=== PATIENT | male | born 1955 ===

== ENCOUNTER 2020-07-06 15:38 | Observation (INO) | payer OTHER ==
[~2020-07-06] VITALS: Ht 182.9 cm; Wt 83.8 kg
--- NOTE | 2020-07-06 17:05 | NUR ---
DIRECT ADMIT FROM URGENT CARE PER PT, A&OX3, AMBULATORY, DENIES ANY PAIN OR NAUSEA, PT STATES HE HAD SOME PAIN ON RUQ AREA AND WENT TO THE URGENT CARE TODAY, STATES HE RECEIVED PAIN MEDICATION AT THE URGENT CARE AND HASN'T HAD ANY PAIN SINCE, DENIES ANY OTHER SYMPTOMS, DR. GUARDADO NOTIFIED OF CONSULT, STATES WILL SEE PT IN AM, NPO AFTER MN, OK FOR CLEAR LIQUIDS UNTIL MN, COVID TEST SENT, PT NOTIFIED OF PLAN, VERBALIZED UNDERSTANDING.
[2020-07-06 17:40] LABS: Influenza A, PCR NEGATIVE (NEGATIVE); Influenza B, PCR NEGATIVE (NEGATIVE); Resp Syncytial Virus, PCR NEGATIVE (NEGATIVE); SARS-Cov-2 (COVID-19) PCR, MMC NEGATIVE (NEGATIVE)
--- NOTE | 2020-07-06 18:22 | NUR ---
TOLERATED CLEAR LIQUIDS WELL, STILL DENIES ANY NEED FOR PAIN MEDS AT THIS TIME, DENIES ANY NAUSEA, OOB TO THE BATHROOM TO VOID, NO ACUTE CHANGES THIS SHIFT.
[2020-07-07 04:40] LABS: BASOPHILS ABSOLUTE AUTO 0.06 K/mm3 (0.00-0.23); BASOPHILS PERCENT AUTO 1 % (0-2); EOSINOPHILS ABSOLUTE AUTO 0.22 K/mm3 (0.00-0.68); EOSINOPHILS PERCENT AUTO 2 % (0-6); Hematocrit 47.6 % (37.0-53.0); Hemoglobin 15.8 g/dL (13.5-17.5); IMMATURE GRAN ABSOLUTE AUTO 0.04 K/mm3 (0.00-0.10); IMMATURE GRAN PERCENT AUTO 0 % (0-1); LYMPHOCYTES ABSOLUTE AUTO 2.43 K/mm3 (0.84-5.20); LYMPHOCYTES PERCENT AUTO 27 % (21-46); MONOCYTES ABSOLUTE AUTO 0.87 K/mm3 (0.16-1.47); MONOCYTES PERCENT AUTO 10 % (4-13); Mean Corpuscular HGB Conc 33.2 g/dL (31.5-36.5); Mean Corpuscular Volume 91 fL (80-100); Mean Platelet Volume 9.3 fL (9.1-12.4); NEUTROPHILS ABSOLUTE AUTO 5.38 K/mm3 (1.96-9.15); NEUTROPHILS PERCENT AUTO 60 % (41-73); Platelet Count 206 K/mm3 (150-400); RDW Coefficient Variation 11.9 % (11.7-14.2); Red Blood Cell Count 5.26 M/mm3 (4.30-5.90)
[2020-07-07 04:59] LABS: Alanine Aminotransfer (ALT/SGP 19 U/L (12-78); Albumin, Blood 3.2 g/dL (3.4-5.0); Alk Phos 59 U/L (50-136); Anion Gap 5 mmol/L (6-16); Aspartate Aminotrans (AST/SGOT 16 U/L (12-37); Bilirubin, Total 2.2 mg/dL (0.1-1.0); Blood Urea Nitrogen 9 mg/dL (8-24); Bun/Creatinine Ratio 9.8 (12.0-20.0); CO2, Blood 27 mmol/L (21-32); Calcium, Blood 8.3 mg/dL (8.5-10.1); Chloride, Blood 111 mmol/L (98-108); Creatinine, Blood 0.92 mg/dL (0.60-1.20); Globulin, Blood 3.1 g/dL (2.2-4.0); Glomerular Filtration Rate >60 (60-); Glucose, Blood 104 mg/dL (70-99); Potassium, Blood 3.8 mmol/L (3.5-5.5); Sodium, Blood 143 mmol/L (136-145); Total Protein, Blood 6.3 g/dL (6.4-8.2)
--- NOTE | 2020-07-07 05:42 | NUR ---
PT VSS T/O NIGHT. PT REP PAIN GAMALIEL, DECLINED NEED FOR PAIN MEDS, NO C/O N/V. PT IS VOIDING URINE W/O DIFFICULTY; URINE CLEAR YELLOW. PT NPO POST MIDNIGHT FOR PLAN FOR SURGERY TODAY.
--- NOTE | 2020-07-07 08:04 | NUR ---
DENIES ANY PAIN OR NAUSEA THIS AM, NPO FOR SURGERY TODAY, PT GOING TO TAKE A SHOWER THIS AM.
--- NOTE | 2020-07-07 11:10 | NUR ---
PT TAKEN TO OR.
--- NOTE | 2020-07-07 13:23 | NUR ---
ADMIT: 07/06/20 DISCHARGE: DX: cholecystitis CC: [email or web address] [facility] CALL: RESIDENCE: home CAREGIVER:self DX: chronic sinusitis DME: none CCM: none HOME HEALTH: none SUMMARY: 07/07/20- per chart review with Dr. Strange, pt is having/had surgery this morning. She states that if the pt is doing well s/p surgery, he could potentially be d/c today. Pt does have an upcoming appt with Dr. Garcia on 07/09/20 at 800. -kjw 1: Cholelithiasis with acute cholecystitis with biliary obstruction A/P: IVF, IVabx, NPO and to the OR for a laparoscopic, possible open, cholecystectomy with cholangiogram. PARQ and consent complete. Gallbladder handbook reviewed in detail.
--- NOTE | 2020-07-07 17:05 | NUR ---
VSS, REPORTS HAVING SOME INCISIONAL PAIN BUT REFUSES ANY PAIN MEDS AT THIS TIME, DSG C/D/I, JM DRAIN W/ SANGUINOUS DRAINAGE, OOB TO THE BATHROOM TO VOID, TOLERATING CLEAR LIQUIDS WELL, NO ACUTE CHANGES THIS SHIFT.
[2020-07-08 04:35] LABS: BASOPHILS ABSOLUTE AUTO 0.03 K/mm3 (0.00-0.23); BASOPHILS PERCENT AUTO 0 % (0-2); EOSINOPHILS PERCENT AUTO 0 % (0-6); Hematocrit 44.2 % (37.0-53.0); Hemoglobin 15.1 g/dL (13.5-17.5); IMMATURE GRAN ABSOLUTE AUTO 0.06 K/mm3 (0.00-0.10); IMMATURE GRAN PERCENT AUTO 0 % (0-1); LYMPHOCYTES ABSOLUTE AUTO 1.79 K/mm3 (0.84-5.20); LYMPHOCYTES PERCENT AUTO 12 % (21-46); MONOCYTES ABSOLUTE AUTO 1.14 K/mm3 (0.16-1.47); MONOCYTES PERCENT AUTO 8 % (4-13); Mean Corpuscular HGB 31.1 pg (26.0-34.0); Mean Corpuscular HGB Conc 34.2 g/dL (31.5-36.5); Mean Corpuscular Volume 91 fL (80-100); Mean Platelet Volume 9.4 fL (9.1-12.4); NEUTROPHILS ABSOLUTE AUTO 11.42 K/mm3 (1.96-9.15); NEUTROPHILS PERCENT AUTO 79 % (41-73); Platelet Count 207 K/mm3 (150-400); RDW Coefficient Variation 11.9 % (11.7-14.2); RDW Standard Deviation 39.8 fL (35.1-46.3); Red Blood Cell Count 4.85 M/mm3 (4.30-5.90); White Blood Cell Count 14.44 K/mm3 (4.00-11.30)
[2020-07-08 04:55] LABS: Alanine Aminotransfer (ALT/SGP 28 U/L (12-78); Albumin, Blood 3.1 g/dL (3.4-5.0); Alk Phos 53 U/L (50-136); Anion Gap 8 mmol/L (6-16); Aspartate Aminotrans (AST/SGOT 27 U/L (12-37); Blood Urea Nitrogen 12 mg/dL (8-24); Bun/Creatinine Ratio 13.1 (12.0-20.0); CO2, Blood 25 mmol/L (21-32); Calcium, Blood 8.2 mg/dL (8.5-10.1); Chloride, Blood 109 mmol/L (98-108); Creatinine, Blood 0.92 mg/dL (0.60-1.20); Globulin, Blood 3.2 g/dL (2.2-4.0); Glomerular Filtration Rate >60 (60-); Glucose, Blood 118 mg/dL (70-99); Potassium, Blood 3.9 mmol/L (3.5-5.5); Sodium, Blood 142 mmol/L (136-145); Total Protein, Blood 6.3 g/dL (6.4-8.2)
--- NOTE | 2020-07-08 06:34 | NUR ---
POD 1 S/P LAP ONEL. PT VSS T/O NIGHT. DRESSINGS CDI, JM PUT OUT 70ML TOTAL OF SS FLUID. PT REP PAIN MINIMAL, TORADOL GIVEN X1 W/REP RELIEF. PT DENIED N/V, REP +SMALL AMT FLATUS. PT GAMALIEL CL PO, HAS BEEN NPO X FEW SIPS OF WATER POST MIDNIGHT FOR POSS TRANSFER FOR ERCP TODAY.
--- NOTE | 2020-07-08 12:56 | NUR ---
Advance Directive(AD) education attempted/ Spiritual Care visit conducted. After receiving an admit referral for AD education, I visit patient. Patient expresses no interest in filling out an Advance Directive and does not want to discuss it. 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 He says that he has great support from his episcopal and his daughters. I provide therapeutic listening and prayer. Patient voices appreciation for the prayer.
--- NOTE | 2020-07-08 16:15 | NUR ---
REPORT CALLED TO [facility] PT'S PAIN WELL CONTROLLED. PASSING GAS. EATING & DRINKING FULL LQS W/O ISSUE.
--- NOTE | 2020-07-08 16:51 | NUR ---
SUMMARY: 07/08/20- PT WAS TRANSFERRED TO [facility] FOR ERCP. -[place]
== END 2020-07-08 16:30 | disposition short-term general hospital (02) ==
LOC: SURS 15:38
PROVIDERS: Surgery; ADMIT Family Medicine
PROC: BF03YZZ Plain Radiography of Gallbladder and Bile Ducts using Other Contrast (ICD-10-PCS; principal; 2020-07-07 10:00)
PROC: 0FT44ZZ Resection of Gallbladder, Percutaneous Endoscopic Approach (ICD-10-PCS; principal; 2020-07-07 10:00)
DX: K80.63 Calculus of gallbladder and bile duct with acute cholecystitis with obstruction (principal); E86.0 Dehydration; E87.1 Hypo-osmolality and hyponatremia; R03.0 Elevated blood-pressure reading, without diagnosis of hypertension
CPT/HCPCS: 0241U; 36415; 74300; 76705; 80053; 85025; 88304; 96365; 96372; 96375; A9270; C1729; G0378; J0690; J1100; J1644; J1885; J1956; J2250; J2370; J2405; J2704; J2710; J2765; J3010; J7030; J7120

== ENCOUNTER 2021-08-27 15:24 | Inpatient (IN) | payer OTHER ==
[~2021-08-27] VITALS: Ht 180.3 cm; Wt 87.0 kg
[2021-08-27 15:51] LABS: BASOPHILS ABSOLUTE AUTO 0.09 K/mm3 (0.00-0.23); BASOPHILS PERCENT AUTO 1 % (0-2); EOSINOPHILS ABSOLUTE AUTO 0.23 K/mm3 (0.00-0.68); EOSINOPHILS PERCENT AUTO 2 % (0-6); Hematocrit 50.5 % (37.0-53.0); Hemoglobin 17.7 g/dL (13.5-17.5); IMMATURE GRAN ABSOLUTE AUTO 0.13 K/mm3 (0.00-0.10); IMMATURE GRAN PERCENT AUTO 1 % (0-1); LYMPHOCYTES ABSOLUTE AUTO 4.44 K/mm3 (0.84-5.20); LYMPHOCYTES PERCENT AUTO 35 % (21-46); MONOCYTES ABSOLUTE AUTO 0.93 K/mm3 (0.16-1.47); MONOCYTES PERCENT AUTO 7 % (4-13); Mean Corpuscular HGB 31.5 pg (26.0-34.0); Mean Corpuscular Volume 90 fL (80-100); Mean Platelet Volume 9.5 fL (9.1-12.4); NEUTROPHILS ABSOLUTE AUTO 6.79 K/mm3 (1.96-9.15); NEUTROPHILS PERCENT AUTO 54 % (41-73); Platelet Count 257 K/mm3 (150-400); RDW Coefficient Variation 11.9 % (11.7-14.2); RDW Standard Deviation 39.1 fL (35.1-46.3); Red Blood Cell Count 5.62 M/mm3 (4.30-5.90); White Blood Cell Count 12.61 K/mm3 (4.00-11.30)
[2021-08-27 16:08] LABS: Anti-Xa UFH, PHA Monitoring <0.10 IU/mL; International Normalized Ratio 1.03; Prothrombin Time Results 10.8 Sec (9.7-11.5)
[2021-08-27 16:18] LABS: Alanine Aminotransfer (ALT/SGP 32 U/L (12-78); Albumin, Blood 3.9 g/dL (3.4-5.0); Alk Phos 78 U/L (50-136); Anion Gap 12 mmol/L (6-16); Aspartate Aminotrans (AST/SGOT 29 U/L (12-37); Blood Urea Nitrogen 16 mg/dL (8-24); Bun/Creatinine Ratio 12.7 (12.0-20.0); CHOL/HDL RATIO 4.3; CO2, Blood 22 mmol/L (21-32); Calcium, Blood 8.6 mg/dL (8.5-10.1); Chloride, Blood 108 mmol/L (98-108); Cholesterol 188 mg/dL (50-200); Creatinine, Blood 1.26 mg/dL (0.60-1.20); Globulin, Blood 3.8 g/dL (2.2-4.0); Glomerular Filtration Rate 58 (60-); Glucose, Blood 213 mg/dL (70-99); HDL Cholesterol 44 mg/dL (>39); LDL/HDL RATIO 2.4; Low Density Lipoprotein Chol 104 mg/dL (0-110); Potassium, Blood 2.9 mmol/L (3.5-5.5); Sodium, Blood 142 mmol/L (136-145); Total Protein, Blood 7.7 g/dL (6.4-8.2); Triglycerides 202 mg/dL (30-160); Very Low Density Lipoprot Chol 40 mg/dL (6-32)
[2021-08-27 16:20] LABS: Bilirubin, Total 2.4 mg/dL (0.1-1.0)
--- NOTE | 2021-08-27 19:14 | NUR ---
ASSUMED CARE OF PATIENT 1715 POST RADIO RECORDER POST STEND LAD : AOX4, FOLLOWS COMMANDS, CALM/COOPERATIVE, DENIES SOB, TITRATED DOWN FROM NRB 10L TO 2L NC, LUNGS CLEAR, NSR 80S, +2 PUSLES, EKG OBTAINED, TROPONIN CRITICAL MD AWARE EXPECTED, HTN LISINOPRIL GIVEN, PRN HYDRALAZINE ORDER, R RADIAL TR BAND 2ML REMOVED 9ML LEFT CDI NO BLEEDING, FREQUENT URINAL USE POST 40MG LASIX CLEAR YELLOW, K 2.9, 40MEQ/IV ORDERED, PATIENT RECEIVED 324MG ASPIRIN IN FIELD, REQUIRES 600MG LOADING PLAVIX DOSE, LINDSEY NEWBY CONSULTED HOSPITALIST, REPORT GIVEN TO NIGHT RN.
--- NOTE | 2021-08-27 19:42 | NUR ---
ASSUMED CARE PATIENT ALERT/A&OX4/ COMPLAINS OF MUSCULOSKELETAL PAIN FROM CPR, DENIES OTHER CHEST PAIN OR SOB. HR 80S-90S NSR, SBP 140S-150S. NC 2L. VOIDING PER URINAL. TOLERATING PO INTAKE. TR BAND WITH 9CC AIR, C/D/I. WILL CONTINUE TO RELEASE AIR AND MONITOR FOR BLEEDING.
--- NOTE | 2021-08-27 21:24 | NUR ---
2049- PATIENT COMPLAINING OF R ARM PAIN, NAUSEA, AND DIAPHORESIS. IV POTASSIUM STOPPED. REQUESTED IV ZOFRAN FROM CONTENT ADMINISTRATOR. PATIENT BEGAIN TO LOOSE CONSCIOUSNESS AND VOMIT. CRASH CART BROUGHT TO BEDSIDE. DR. ZELAYA AND LINDSEY AT BEDSIDE. PATIENT HAD A PULSE WITH HR IN 60S. 30 SECONDS LATER PATIENT REGAINED CONSCIOUSNESS AND WAS A&OX4.STAT EKG WITH NO CHANGES. CBG 152. RESTARTED IV POTASSIUM IN LEFT ARM AND PATIENT QUICKLY DEVELOPED NAUSEA AND DIAPHORESIS. IV POTASSIUM STOPPED. DR. PORTILLO NOTIFIED AND DISCUSSED CHANGING TO PO POTASSIUM ONCE NAUSEA RESOLVED. WILL REPEAT AM LABS AND CONTINUE TO MONITOR OVERNIGHT.
[2021-08-28 03:25] LABS: Hematocrit 52.3 % (37.0-53.0); Hemoglobin 17.9 g/dL (13.5-17.5); Mean Corpuscular HGB 31.3 pg (26.0-34.0); Mean Corpuscular HGB Conc 34.2 g/dL (31.5-36.5); Mean Corpuscular Volume 92 fL (80-100); Mean Platelet Volume 9.4 fL (9.1-12.4); Platelet Count 242 K/mm3 (150-400); RDW Coefficient Variation 12.5 % (11.7-14.2); RDW Standard Deviation 41.6 fL (35.1-46.3); Red Blood Cell Count 5.71 M/mm3 (4.30-5.90); White Blood Cell Count 19.19 K/mm3 (4.00-11.30)
[2021-08-28 03:41] LABS: Bun/Creatinine Ratio 12.8 (12.0-20.0); Creatinine, Blood 1.56 mg/dL (0.60-1.20); Potassium, Blood 4.5 mmol/L (3.5-5.5)
--- NOTE | 2021-08-28 06:02 | NUR ---
SHIFT SUMMARY AFTER SYNCOPAL EPISODE, PATIENT SLEPT THROUGHOUT THE NIGHT WITHOUT COMPLAINTS OF NAUSEA OR INCREASING CHEST PAIN. MUSCULOSKELETAL CHEST PAIN WITH COUGHING. PATIENT AROUSABLE, A&OX4. AFEBRILE. NSR 60S-80S, MINIMAL ECTOPY. 20 MEQ POTASSIUM PO INCREASED SERUM POTASSIUM TO 4.5. SBP 90-100S WITH MAP>65. +2 PULSES. TR BAND OFF @ 2130. DRESSING C/D/I. NO HEMATOMA. 2L NC. SPO2>94%. TOLERATING PO INTAKE AFTER ZOFRAN. VOIDING PER URINAL. TROPONIN 20,377- HAS NOT PEAKED. WILL CONTINUE TO MONITOR AND REPORT OFF TO DAY SHIFT WHEN AVAILABLE.
--- NOTE | 2021-08-28 09:46 | NUR ---
ASSUMED CARE OF PATIENT 0700: AOX4, FOLLOWS COMMANDS, NSR 60/70S, QTC PROLONGED GIVEN PO METOPROLOL EARLY, MAG 2.5, HOLD ZOFRAN, DENIES NAUSEA, 3/10 MUSCULOSKELETAL RIB PAIN WITH BREATHING, 2L NC REMOVED SATS 94, DENIES SOB, LUNGS CLEAR, IO ACCESS REMOVED CDI DRESSING, R RADIAL SITE CDI NO HEMATOMA, WILL CONTINUE TO MONITOR.
--- NOTE | 2021-08-28 13:29 | NUR ---
Pt. is alert and welcomes my visit. 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 No apparent issues of distress. Listen emptathetically and establish rapport. Pt. displays evidence of understanding the miracle of his health crisis and the fantastic work of the the house calls nurse who revived him. Prayed for pt. Pt. verbalized his gratitude for the spiritual care he received.
--- NOTE | 2021-08-28 18:39 | NUR ---
AOX4, FOLLOWS COMMANDS, DENIES PAIN EXCEPT MUSCULOSKELETAL 3/10 W/ DEEP BREATHS, DOWN TO 1L NC, LUNGS CLEAR, DENIES SOB, SOME DESAT 91 SPO2 WHEN SLEEPING ON RA ATTEMPT, NSR 70S, BP WNL, PROLONGED QT .54, DC ZOFRAN, METOPROLOL PO EARLY, MAG LEVEL 2.6, QT IMPROVED OVER SHIFT, TROPONIN TRENDING DOWN, TOLERATING DIET, IO ACCESS REMOVED CDI DRESSING, R RADIAL ACCESS CDI NO HEMATOMA, MADE PCU STATUS, EXPECTED DISCHARGE TOMORROW, WILL REPORT TO NIGHT RN.
--- NOTE | 2021-08-28 19:21 | NUR ---
ASSUMED CARE PATIENT AXOX4, DENIES PAIN EXCEPT MUSCULOSKELETAL STERNAL/RIB PAIN WITH DEEP INSPIRATION AND COUGHING. NSR 70S, SBP 100S, 2+ PULSES, RIGHT RADIAL PCI SITE C/D/I, NO HEMOTOMA. SPO2 88-89 ON 1L NC SO INCREASED TO 2L NC. CLEAR/DIM LUNG SOUNDS. ENCOURAGING DEEP BREATHING WITH IS. TOLERATING DIET, NO COMPLAINTS OF NAUSEA. VOIDING PER URINAL. WILL CONTINUE TO MONITOR.
[2021-08-29 04:02] LABS: Bun/Creatinine Ratio 17.3 (12.0-20.0); Calcium, Blood 8.5 mg/dL (8.5-10.1); Creatinine, Blood 2.08 mg/dL (0.60-1.20)
--- NOTE | 2021-08-29 05:54 | NUR ---
NO MAJOR OVERNIGHT EVENTS. AXOX4. NO CHANGES TO CHEST PAIN WITH DEEP INSPIRATION OR COUGHING. ENCOURAGING USE OF INCENTIVE SPIROMETER. 1L NC VS RA. SPO2 90-95%. DENIES SOB. NSR 60-80S. SBP 90-1TEENS. RIGHT RADIAL DRESSING C/D/I. TOLERATING PO, NO NAUSEA. WILL POTENTIALLY D/C HOME TODAY.
--- NOTE | 2021-08-29 07:31 | NUR ---
ASSUMED CARE, REPORT FROM PM RN, ECHO IN ROOM NOW WITH PATIENT, UNEVENTFUL NIGHT, CALL LIGHT WITH IN REACH, POSSIBLE D/C TODAY, WCTM
--- NOTE | 2021-08-29 09:30 | NUR ---
DR MUÑOZ ROUNDED, ECHO DONE, WAITING FOR DR OLIVEROS TO READ, LISINOPRIL CHANGED TO IMUDUR, RELAYED TO DR MUÑOZ HELD AM METOPROLOL FOR SBP 90S, PATIENT DENIES PAIN PRESENTLY, WCTM
--- NOTE | 2021-08-29 13:02 | NUR ---
DR MUÑOZ CALLED, PATIENT UPDATE, DR MUÑOZ TO CALL GARCIA TO SEE IF PATIENT SHOULD STAY ANOTHER NIGHT OR GO HOME, REPORTED BP AND QTC, PATIENT RESTING IN BED, CALL GIANNA WITH IN REACH, [facility]
--- NOTE | 2021-08-29 14:24 | NUR ---
ENCOURAGED DEEP BREATHING, COUGHING, IS, EDUCATED ON HOW TO BRACE AGAINST A PILLOW, PATIENT HAS RIB PATIENT AND IS NOT BREATHING DEEP, PATIENT EDUCATED ON PNEUMONIA, USING IS NOW, IS AT 500, WILL CONTINUE TO USE
--- NOTE | 2021-08-29 16:38 | NUR ---
TRANSFER OF CARE REPORT TO [facility] ON MEDICAL FLOOR, PATIENT TO BE TRANSFERED TO [facility]
--- NOTE | 2021-08-29 18:15 | NUR ---
SHIFT SUMMARY PT WAS TRANSFERRED TO THE FLOOR [facility] 1630. ALL BELONGINGS BROUGHT WITH BY ICU AND PT REMAINED HOOKED UP TO TELE UNTIL ANOTHER TELE BOX COULD BE BROUGHT. HE WAS ABLE TO GET FROM THE CHAIR TO THE BED WITHOUT HELP. PT COMPLAINING OF SOURE CHEST AND THROAT. CEPACOL LOZENGES ORDERED FOR HIM, WAITING ON PHARMACY TO APPROVE. WILL PASS ONTO CLOTH FOLDER MACHINE IF NOT APPROVED BEFORE SHIFT OVER. PT IS RESTING COMFORTABLE IN BED, VITAL SIGNS STABLE, DENIES PAIN OR SOB. VERY EAGER TO BE DISCHARGED TOMORROW IS THE HOPE WELL. WILL CONTINUE TO MONITOR.
--- NOTE | 2021-08-30 04:52 | NUR ---
SHIFT SUMMARY PT A/O X4, SR ON TELEMETRY WITH HR IN THE 80'S PER ICE PULLER, DENIED ANY CP OR SOB THIS SHIFT, USED IS UP TO 750 WITH ENCOURAGEMENT AND INSTRUCTED TO USE 10X Q2 HRS AND TO T,C AND DB Q 2 HOURS AND PT VERBALIZED UNDERSTANDING, AMBULATED TO BR AND GENERALIZED WEAKNESS NOTED , RT. RADIAL CATH SITE DRSG WAS REMOVED AND PUNCTURE SITE IS INTACT WITH GOOD CSM TO RT. HAND AND GOOD RADIAL PULSES. NO ACUTE DISTRESS NOTED.
[2021-08-30 06:03] LABS: Calcium, Blood 8.6 mg/dL (8.5-10.1); Creatinine, Blood 1.4 mg/dL (0.60-1.20); Potassium, Blood 4.3 mmol/L (3.5-5.5)
[2021-08-30] MEDS ORDERED: ASPI81CH PO (13:04)
[2021-08-30] MEDS ORDERED: ATOR40TA PO (13:04)
[2021-08-30] MEDS ORDERED: Isosorbide Mono30 MG PO (13:05)
[2021-08-30] MEDS ORDERED: BENMENLOZ (13:05)
[2021-08-30] MEDS ORDERED: CLOP75 PO (13:05)
[2021-08-30] MEDS ORDERED: METO25 PO (13:06)
--- NOTE | 2021-08-30 13:31 | NUR ---
DISCHARGE PT DISCHARGED HOME BY WHEELCHAIR AT 1320. ALL DISCHARGE PAPERWORK GONE OVER AND IV DC'D. PT GIVEN NEW PT PACKETS AND INFORMED ON HOW TO MAKE AN APPOINTMENT WITH A NEW DOCTOR.
== END 2021-08-30 13:19 | disposition home or self-care (01) | DRG 246 ==
LOC: ER 15:24 → ICUW 15:44 → MEDS 08-29 16:58
PROVIDERS: Internal Medicine; Student in an Organized Health Care Education/Training Program; ADMIT Internal Medicine Interventional Cardiology
PROC: 027034Z Dilation of Coronary Artery, One Artery with Drug-eluting Intraluminal Device, Percutaneous Approach (ICD-10-PCS; principal; 2021-08-27)
PROC: 02703ZZ Dilation of Coronary Artery, One Artery, Percutaneous Approach (ICD-10-PCS; 2021-08-27)
PROC: 4A023N7 Measurement of Cardiac Sampling and Pressure, Left Heart, Percutaneous Approach (ICD-10-PCS; 2021-08-27)
PROC: B2111ZZ Fluoroscopy of Multiple Coronary Arteries using Low Osmolar Contrast (ICD-10-PCS; 2021-08-27)
PROC: 5A2204Z Restoration of Cardiac Rhythm, Single (ICD-10-PCS; 2021-08-27)
PROC: 02C03ZZ Extirpation of Matter from Coronary Artery, One Artery, Percutaneous Approach (ICD-10-PCS; 2021-08-27)
PROC: B240ZZ3 Ultrasonography of Single Coronary Artery, Intravascular (ICD-10-PCS; 2021-08-27)
DX: I21.09 ST elevation (STEMI) myocardial infarction involving other coronary artery of anterior wall (principal); I49.01 Ventricular fibrillation; I46.9 Cardiac arrest, cause unspecified; N17.9 Acute kidney failure, unspecified; I25.10 Atherosclerotic heart disease of native coronary artery without angina pectoris; E87.6 Hypokalemia; D72.829 Elevated white blood cell count, unspecified; I10 Essential (primary) hypertension; Z90.49 Acquired absence of other specified parts of digestive tract; Z28.21 Immunization not carried out because of patient refusal; Z98.52 Vasectomy status
CPT/HCPCS: 36415; 71045; 76937; 80048; 80053; 80061; 82947; 83735; 84484; 85025; 85027; 85347; 85520; 85610; 85730; 86850; 86900; 86901; 92921; 92950; 92978; 93005; 93010; 93458; 96374; 96375; 99152; 99285-25; A9270; C1725; C1753; C1757; C1769; C1874; C1887; C1894; C8929; C9600; C9606; J0282; J1644; J1940; J2250; J2405; J3010; J3246; J3475; J3480; J7030; J7050; Q9957; Q9967

== ENCOUNTER 2023-03-21 04:03 | Emergency (ER) | payer MEDICARE ==
[~2023-03-21] VITALS: Ht 180.3 cm; Wt 90.7 kg
[~2023-03-21 04:03] MED LIST: ASPI81CH PO; ATOR40TA PO; BENMENLOZ; CLOP75 PO; Isosorbide Mono30 MG PO; METO25 PO
[2023-03-21 04:19] LABS: BASOPHILS ABSOLUTE AUTO 0.08 K/mm3 (0.00-0.23); BASOPHILS PERCENT AUTO 1 % (0-2); EOSINOPHILS ABSOLUTE AUTO 0.47 K/mm3 (0.00-0.68); EOSINOPHILS PERCENT AUTO 6 % (0-6); IMMATURE GRAN ABSOLUTE AUTO 0.03 K/mm3 (0.00-0.10); IMMATURE GRAN PERCENT AUTO 0 % (0-1); LYMPHOCYTES ABSOLUTE AUTO 2.99 K/mm3 (0.84-5.20); LYMPHOCYTES PERCENT AUTO 36 % (21-46); MONOCYTES ABSOLUTE AUTO 0.61 K/mm3 (0.16-1.47); MONOCYTES PERCENT AUTO 7 % (4-13); Mean Corpuscular HGB 31.5 pg (26.0-34.0); Mean Corpuscular HGB Conc 34.7 g/dL (31.5-36.5); Mean Corpuscular Volume 91 fL (80-100); Mean Platelet Volume 9.4 fL (9.1-12.4); NEUTROPHILS ABSOLUTE AUTO 4.18 K/mm3 (1.96-9.15); NEUTROPHILS PERCENT AUTO 50 % (41-73); Platelet Count 213 K/mm3 (150-400); RDW Coefficient Variation 12.1 % (11.7-14.2); RDW Standard Deviation 39.7 fL (35.1-46.3); Red Blood Cell Count 5.39 M/mm3 (4.30-5.90); White Blood Cell Count 8.36 K/mm3 (4.00-11.30)
[2023-03-21 04:38] LABS: Albumin, Blood 3.8 g/dL (3.4-5.0); Albumin/Globulin Ratio 1.1 (0.8-1.8); Bilirubin, Total 1.5 mg/dL (0.1-1.0); Bun/Creatinine Ratio 11.8 (12.0-20.0); Calcium, Blood 8.6 mg/dL (8.5-10.1); Creatinine, Blood 1.02 mg/dL (0.60-1.20); Globulin, Blood 3.6 g/dL (2.2-4.0); Potassium, Blood 3.9 mmol/L (3.5-5.5); Total Protein, Blood 7.4 g/dL (6.4-8.2)
[2023-03-21 06:00] VITALS: BP 152/96
== END 2023-03-21 07:04 | disposition home or self-care (01) ==
LOC: ER 04:03
PROVIDERS: Student in an Organized Health Care Education/Training Program
DX: R06.02 Shortness of breath (principal); Z79.899 Other long term (current) drug therapy; Z79.82 Long term (current) use of aspirin
CPT/HCPCS: 71046; 80053; 83880; 84484; 85025; 93005; 93010; 99285-25; A9270